=== PATIENT | female | born 1995 | race American Indian/Alaskan Native ===

== ENCOUNTER 2017-10-23 22:33 | Emergency (ER) | payer OTHER ==
[2017-10-24 00:45] LABS: Anion Gap 22 mmol/L; BUN/Creatinine Ratio 22; Blood Urea Nitrogen 11 mg/dL (7-17); Calcium 9.5 mg/dL (8.4-10.2); Carbon Dioxide 21 mmol/L (22-30); Chloride 100.9 mmol/L (98-107); Glucose 77 mg/dL (65-100); Potassium 4.3 mmol/L (3.6-5.0); Sodium 140 mmol/L (137-145)
[2017-10-24 00:53] LABS: Basophils % (Auto) 0.7 % (0.0-1.8); Eosinophils % (Auto) 0.7 % (0.0-4.3); Mean Corpuscular HGB Conc 29 % (30-34); Platelet Count 403 K/mm3 (140-440); Red Blood Count 4.42 M/mm3 (3.65-5.03); White Blood Count 7.9 K/mm3 (4.5-11.0)
[2017-10-24 00:55] LABS: Hematocrit 28.3 % (30.3-42.9); Hemoglobin 8.3 gm/dl (10.1-14.3); Mean Corpuscular Volume 64 fl (79-97)
[2017-10-24 00:56] LABS: Mean Corpuscular Hemoglobin 19 pg (28-32); Red Cell Distribution Width 20.9 % (13.2-15.2)
[2017-10-24 01:03] LABS: Urine Drugs of Abuse Note Disclamer
[2017-10-24 01:41] LABS: Bilirubin,Urine NEG (Negative); Blood,Urine NEG (Negative); Ketones,Urine 80 mg/dL (Negative); Leukocyte Esterase,Urine NEG (Negative); Mucus,Urine 3+ /HPF; Nitrite,Urine NEG (Negative); Protein,Urine <15 mg/dL mg/dL (Negative)
--- NOTE | 2017-10-24 08:17 | Emergency Department Report ---
ED General Adult HPI - General Chief complaint: Psych Stated complaint: CHEST PAIN/AMPHETAMINES/BENEDRYL Time Seen by Provider: 10/24/17 08:02 Source: patient, RN notes reviewed Mode of arrival: Ambulatory Limitations: No Limitations - History of Present Illness Initial comments: This is a 22-year-old female who was previously unknown to this provider. The patient presents to the ER with a primary complaint of suicidality and overdose. Patient reports multiple ingestions yesterday, between 1 PM to 8 PM. As per nurse documentation: First contact with pt. Pt ambulated to room 5 from the with steady gait. Pt states she took 1 Adderall @ 1300, 2 Adderralls @ 1500, 3 Adderalls @ 1700, and 3 Adderalls and 25 mg Benadryl @ 2000 last night. Pt states they were "immediate release". Pt states she wishes she was and the intent was to kill herself. Pt denies HI and previous suicide attempts. The patient denies coingestions. The patient also complains of chest pain. The chest pain is central. It is achy. It has been present since 4:00 in the morning. It radiates to the back. There is no vomiting, there is no diaphoresis, there is no shortness of breath , there is no leg pain. There is no leg swelling. Patient denies DVT and pulmonary embolus risk factors, and she denies taking control tablets. She also complains of crampy diffuse abdominal pain. It is "all over." It does not radiate anywhere. He does not have exacerbating or relieving factors. Patient also has a self-inflicted wound to the left upper extremity, which she indicates she carved herself yesterday, which states "checked my wallet." -: Gradual, hour(s) Location: chest, abdomen Radiation: back Severity scale (0 -10): 0 Quality: aching Consistency: intermittent Improves with: none Worsens with: none Associated Symptoms: chest pain, weakness. denies: confusion, cough, shortness of breath - Related Data Allergies Allergy/AdvReac Type Severity Reaction Status Date / Time Penicillins Allergy Rash Verified 10/23/17 23:44 ED Review of Systems ROS: Stated complaint: CHEST PAIN/AMPHETAMINES/BENEDRYL Other details as noted in HPI Constitutional: denies: fever Eyes: denies: vision change ENT: denies: epistaxis Respiratory: denies: cough Cardiovascular: chest pain Gastrointestinal: abdominal pain Genitourinary: denies: dysuria Musculoskeletal: as per HPI Skin: as per HPI, rash Neurological: as per HPI Psychiatric: depression, suicidal thoughts ED Past Medical Hx - Past Medical History Previous Medical History?: Yes Hx Psychiatric Treatment: Yes Additional medical history: Anemia - Surgical History Past Surgical History?: No Additional Surgical History: Hernia - Social History Smoking Status: Current Every Day Smoker Substance Use Type: Alcohol, Marijuana ED Physical Exam - General Limitations: No Limitations General appearance: alert, anxious - Head Head exam: Present: atraumatic, normocephalic - Eye Eye exam: Present: normal appearance, EOMI, other (visual acuity intact to finger counting, color perception, reading at a close distance). Absent: nystagmus - ENT ENT exam: Present: normal exam, normal orophraynx, mucous membranes moist, normal external ear exam - Neck Neck exam: Present: normal inspection, full ROM. Absent: tenderness, meningismus - Respiratory Respiratory exam: Present: normal lung sounds bilaterally. Absent: respiratory distress, chest wall tenderness - Cardiovascular Cardiovascular Exam: Present: regular rate, normal rhythm, normal heart sounds. Absent: systolic murmur, diastolic murmur, rubs, gallop - GI/Abdominal GI/Abdominal exam: Present: soft, normal bowel sounds. Absent: distended, tenderness, guarding, rebound, rigid, pulsatile mass - Extremities Exam Extremities exam: Present: full ROM, normal capillary refill, other (2+ pulses noted in the bilateral upper extremities and lower extremities. The compartments are soft, and the pelvis is stable. In the left upper extremity, patient has a self-inflicted wound written in the volar aspect of her left forearm which reads: "check my wallet"). Absent: normal inspection, tenderness , pedal edema, joint swelling, calf tenderness - Back Exam Back exam: Present: normal inspection, full ROM. Absent: tenderness, CVA tenderness (R), paraspinal tenderness, vertebral tenderness - Neurological Exam Neurological exam: Present: alert, oriented X3, normal gait, other (Extraocular movements intact. Tongue midline. No facial droop. Facial sensation intact to light touch in the V1, V2, V3 distribution bilaterally. 5 and 5 strength in 4 extremities.. Sensation is intact to light touch in 4 extremities.). Absent : motor sensory deficit - Psychiatric Psychiatric exam: Present: anxious, suicidal ideation. Absent: homicidal ideation - Skin Skin exam: Present: warm, dry, intact, normal color. Absent: rash ED Course Vital Signs 10/23/17 10/24/17 10/24/17 23:45 08:29 11:45 Temperature 98.7 F 98.6 F 98.9 F Pulse Rate 99 H 87 73 Respiratory 18 14 16 Rate Blood Pressure 130/89 125/90 111/78 [Right] O2 Sat by Pulse 100 100 100 Oximetry - Reevaluation(s) Reevaluation #1: 10/24/17 10:19 Differential diagnosis, including but not limited to: Polysubstance overdose, self-inflicted wound to left upper extremity, acute coronary syndrome, pneumonia , costochondritis, GERD, reflux, , medical clearance for psychiatric placement Assessment and plan: 22-year-old female with multiple complaints. In terms of the patient's overdose, she is placed on a 1013. Her last overdose by history was at 8:00 last night. Patient presented almost 4 hours after ingestion, and she is therefore not a charcoal candidate. The [facility] was contacted by the nurse, and they recommended a creatinine kinase, and serum toxicology studies and supportive care. No pulmonary embolus or DVT risk factors, low risk by well's criteria, low risk by CARY score, low risk by heart score. We will check serum toxicology studies, troponin 2, EKG has been unremarkable 2, x-ray of the chest is negative. Abdomen soft and benign, with no rebound, guarding or peritoneal signs, the patient is currently sitting on a stretcher, I don't believe she requires advanced imaging at this time. We will contact psychiatry once all of her objective data points have returned. Reevaluation #2: 10/24/17 14:21 Patient reevaluated multiple times by myself. Patient in no distress. Vital signs remained unremarkable and stable. Patient resting comfortably, and in no distress. Serum toxicology studies are unremarkable. The patient is medically stable for psychiatric consultation, evaluation and placement at this time. there does not appear to be any immediate medical contraindication to psychiatric placement. ED Medical Decision Making - Lab Data Result diagrams: 10/23/17 23:59 10/23/17 23:59 Vital Signs 10/23/17 10/24/17 23:45 08:29 Temperature 98.7 F 98.6 F Pulse Rate 99 H 87 Respiratory 18 14 Rate Blood Pressure 130/89 125/90 [Right] O2 Sat by Pulse 100 100 Oximetry Lab Results 10/23/17 10/23/17 10/23/17 Range/Units 23:59 23:59 23:59 WBC (4.5-11.0) K/mm3 RBC (3.65-5.03) M/mm3 Hgb (10.1-14.3) gm/dl Hct (30.3-42.9) % MCV (79-97) fl MCH (28-32) pg MCHC (30-34) % RDW (13.2-15.2) % Plt Count (140-440) K/mm3 Lymph % (Auto) (13.4-35.0) % Fleming % (Auto) (0.0-7.3) % Eos % (Auto) (0.0-4.3) % Baso % (Auto) (0.0-1.8) % Lymph # (1.2-5.4) K/mm3 Fleming # (0.0-0.8) K/mm3 Eos # (0.0-0.4) K/mm3 Baso # (0.0-0.1) K/mm3 Seg Neutrophils % (40.0-70.0) % Seg Neutrophils # (1.8-7.7) K/mm3 Sodium 140 (137-145) mmol/L Potassium 4.3 (3.6-5.0) mmol/L Chloride 100.9 (98-107) mmol/L Carbon Dioxide 21 L (22-30) mmol/L Anion Gap 22 mmol/L BUN 11 (7-17) mg/dL Creatinine 0.5 L (0.7-1.2) mg/dL Estimated GFR > 60 ml/min BUN/Creatinine Ratio 22 % Glucose 77 (65-100) mg/dL Calcium 9.5 (8.4-10.2) mg/dL Total Creatine Kinase (30-135) units/L Troponin T (0.00-0.029) ng/mL HCG, Qual Negative (Negative) Urine Color (Yellow) Urine Turbidity (Clear) Urine pH (5.0-7.0) Ur Specific [place] (1.003-1.030) Urine Protein (Negative) mg/dL Urine Glucose (UA) (Negative) mg/dL Urine Ketones (Negative) mg/dL Urine Blood (Negative) Urine Nitrite (Negative) Urine Bilirubin (Negative) Urine Urobilinogen (<2.0) mg/dL Ur Leukocyte Esterase (Negative) Urine WBC (Auto) (0.0-6.0) /HPF Urine RBC (Auto) (0.0-6.0) /HPF U Epithel Cells (Auto) (0-13.0) /HPF Hyaline Casts /LPF Urine Mucus /HPF Urine Opiates Screen Urine Methadone Screen Ur Barbiturates Screen Ur Phencyclidine Scrn Ur Amphetamines Screen U Benzodiazepines Scrn Urine Cocaine Screen U Marijuana (THC) Screen Drugs of Abuse Note Plasma/Serum Alcohol < 0.01 (0-0.07) gm% 10/23/17 10/23/17 10/23/17 Range/Units 23:59 23:59 23:59 WBC 7.9 (4.5-11.0) K/mm3 RBC 4.42 (3.65-5.03) M/mm3 Hgb 8.3 L (10.1-14.3) gm/dl Hct 28.3 L (30.3-42.9) % MCV 64 L (79-97) fl MCH 19 L (28-32) pg MCHC 29 L (30-34) % RDW 20.9 H (13.2-15.2) % Plt Count 403 (140-440) K/mm3 Lymph % (Auto) 16.8 (13.4-35.0) % Fleming % (Auto) 5.8 (0.0-7.3) % Eos % (Auto) 0.7 (0.0-4.3) % Baso % (Auto) 0.7 (0.0-1.8) % Lymph # 1.3 (1.2-5.4) K/mm3 Fleming # 0.5 (0.0-0.8) K/mm3 Eos # 0.1 (0.0-0.4) K/mm3 Baso # 0.1 (0.0-0.1) K/mm3 Seg Neutrophils % 76.0 H (40.0-70.0) % Seg Neutrophils # 6.0 (1.8-7.7) K/mm3 Sodium (137-145) mmol/L Potassium (3.6-5.0) mmol/L Chloride (98-107) mmol/L Carbon Dioxide (22-30) mmol/L Anion Gap mmol/L BUN (7-17) mg/dL Creatinine (0.7-1.2) mg/dL Estimated GFR ml/min BUN/Creatinine Ratio % Glucose (65-100) mg/dL Calcium (8.4-10.2) mg/dL Total Creatine Kinase 49 (30-135) units/L Troponin T < 0.010 (0.00-0.029) ng/mL HCG, Qual (Negative) Urine Color (Yellow) Urine Turbidity (Clear) Urine pH (5.0-7.0) Ur Specific [place] (1.003-1.030) Urine Protein (Negative) mg/dL Urine Glucose (UA) (Negative) mg/dL Urine Ketones (Negative) mg/dL Urine Blood (Negative) Urine Nitrite (Negative) Urine Bilirubin (Negative) Urine Urobilinogen (<2.0) mg/dL Ur Leukocyte Esterase (Negative) Urine WBC (Auto) (0.0-6.0) /HPF Urine RBC (Auto) (0.0-6.0) /HPF U Epithel Cells (Auto) (0-13.0) /HPF Hyaline Casts /LPF Urine Mucus /HPF Urine Opiates Screen Urine Methadone Screen Ur Barbiturates Screen Ur Phencyclidine Scrn Ur Amphetamines Screen U Benzodiazepines Scrn Urine Cocaine Screen U Marijuana (THC) Screen Drugs of Abuse Note Plasma/Serum Alcohol (0-0.07) gm% 10/24/17 10/24/17 Range/Units 00:47 00:47 WBC (4.5-11.0) K/mm3 RBC (3.65-5.03) M/mm3 Hgb (10.1-14.3) gm/dl Hct (30.3-42.9) % MCV (79-97) fl MCH (28-32) pg MCHC (30-34) % RDW (13.2-15.2) % Plt Count (140-440) K/mm3 Lymph % (Auto) (13.4-35.0) % Fleming % (Auto) (0.0-7.3) % Eos % (Auto) (0.0-4.3) % Baso % (Auto) (0.0-1.8) % Lymph # (1.2-5.4) K/mm3 Fleming # (0.0-0.8) K/mm3 Eos # (0.0-0.4) K/mm3 Baso # (0.0-0.1) K/mm3 Seg Neutrophils % (40.0-70.0) % Seg Neutrophils # (1.8-7.7) K/mm3 Sodium (137-145) mmol/L Potassium (3.6-5.0) mmol/L Chloride (98-107) mmol/L Carbon Dioxide (22-30) mmol/L Anion Gap mmol/L BUN (7-17) mg/dL Creatinine (0.7-1.2) mg/dL Estimated GFR ml/min BUN/Creatinine Ratio % Glucose (65-100) mg/dL Calcium (8.4-10.2) mg/dL Total Creatine Kinase (30-135) units/L Troponin T (0.00-0.029) ng/mL HCG, Qual (Negative) Urine Color Yellow (Yellow) Urine Turbidity Clear (Clear) Urine pH 6.0 (5.0-7.0) Ur Specific [place] 1.021 (1.003-1.030) Urine Protein <15 mg/dl (Negative) mg/dL Urine Glucose (UA) Neg (Negative) mg/dL Urine Ketones 80 (Negative) mg/dL Urine Blood Neg (Negative) Urine Nitrite Neg (Negative) Urine Bilirubin Neg (Negative) Urine Urobilinogen 2.0 (<2.0) mg/dL Ur Leukocyte Esterase Neg (Negative) Urine WBC (Auto) 2.0 (0.0-6.0) /HPF Urine RBC (Auto) 2.0 (0.0-6.0) /HPF U Epithel Cells (Auto) 4.0 (0-13.0) /HPF Hyaline Casts 1 /LPF Urine Mucus 3+ /HPF Urine Opiates Screen Presumptive negative Urine Methadone Screen Presumptive negative Ur Barbiturates Screen Presumptive negative Ur Phencyclidine Scrn Presumptive negative Ur Amphetamines Screen Presumptive positive U Benzodiazepines Scrn Presumptive negative Urine Cocaine Screen Presumptive negative U Marijuana (THC) Screen Presumptive positive Drugs of Abuse Note Disclamer Plasma/Serum Alcohol (0-0.07) gm% - EKG Data -: EKG Interpreted by Me - EKG Data 10/24/17 10:21 Sinus, 79 beats minute, normal axis, QTC prolonged, incomplete right bundle branch block, abnormal EKG, not morphologically consistent with ST elevation myocardial infarction, unremarkable EKG 2, initial EKG dentistry as tachycardia. - Radiology Data Radiology results: image reviewed interpreted by me: X-ray of the chest is negative for acute disease Critical care attestation.: If time is entered above; I have spent that time in minutes in the direct care of this critically ill patient, excluding procedure time. ED Disposition Clinical Impression: Medical clearance for psychiatric admission Disposition: [id number]/[id number] PSY HOSP/PSY UNIT Is pt being admited?: No Does the pt Need Aspirin: No Condition: Good Referrals: PRIMARY CARE, [Primary Care Provider] - 3-5 Days
[2017-10-24] MEDS ORDERED: HALDOL IM PRN (08:24)
[2017-10-24] MEDS ORDERED: ZOFRAN ODT PO PRN (08:24)
[2017-10-24] MEDS ORDERED: ATIVAN IM PRN (08:24)
[2017-10-24] MEDS ORDERED: TYLENOL PO PRN (08:24)
[2017-10-24] MEDS ORDERED: BOOSTRIX IM ONE (10:17)
--- NOTE | 2017-10-24 10:27 | XRay Report ---
AP CHEST : 10/24/17 CLINICAL: Chest pain. COMPARISON:None FINDINGS: Normal heart and pulmonary vessels. The lungs are normally expanded and clear. The bones and soft tissues are unremarkable. IMPRESSION: Normal chest.
--- NOTE | 2017-10-25 10:41 | Consultation ---
History of Present Illness - Reason for Consult Consult date: 10/25/17 Reason for consult: Mental Health Evaluation Requesting physician: ANA STOCK - Chief Complaint Chief complaint: "I wanted to " - History of Present Psychiatric Illness The patient presents to the ER with a primary complaint of suicidality and overdose. Today patient is calm and cooperative, but withdrawn during the assessment. She stated that she been feeling "some sort of way" for the past 2 years. She stated that she has lost a lot of things reference bad relationships. She made a decision because of a relationship to move from one city in [place] to another that caused her to change jobs (she took a pay cut). She stated by taking a pay cut she lost her car and could not afford to pay rent on her own. Currently, the patient is in a relationship that has not always been "good." She stated yesterday they got into an argument because she thinks her partner is "cheating" on her. She stated that life came falling down on her and she wanted to , so she decided to take multiple adderall pills (9) to kill herself. She stated this is the first time she has tried to attempt to kill herself. She stated that her sleep has been erratic lately thinking about her future. She stated that she smoke "weed" often to "mellow out." She stated that she need help and want to talk with a professional, because her life is "not right." She denies SI/HI's and AVH's. She rate her depression 7/10, with 10 being the worse. She denies excessive alcohol consumption (etoh). Medications and Allergies Allergies Allergy/AdvReac Type Severity Reaction Status Date / Time Penicillins Allergy Rash Verified 10/25/17 11:02 Home Medications Medication Instructions Recorded Confirmed Last Taken Type No Known Home Medications [No 10/24/17 10/24/17 Unknown History Reported Home Medications] Active Meds: Active Medications Acetaminophen (Tylenol) 650 mg PO Q6HR PRN PRN Reason: Pain Haloperidol Lactate (Haldol) 5 mg IM Q6HR PRN PRN Reason: Agitation Lorazepam (Ativan) 2 mg IM Q4HR PRN PRN Reason: Agitation Ondansetron HCl (Zofran Odt) 4 mg PO Q6HR PRN PRN Reason: Nausea Past psychiatric history - Past Medical History Past Medical History: anemia Past Surgical History: No surgical history - past Psychiatric treatment and history psychiatric treatment history: Denies a psy hx and a fam psy hx. - Social History Social history: other (Resides with her partner) Mental Status Exam - Vital signs Last Vital Signs Temp 98.6 F 10/24/17 19:05 Pulse 90 10/24/17 19:05 Resp 16 10/24/17 19:05 BP 118/77 10/24/17 19:05 Pulse Ox 99 10/24/17 19:05 - Exam Narrative exam: MSE: Appearance: calm, cooperative Behavior: regular eye contact Speech: regular rate and tone Mood: withdrawn Affect: congruent to mood Thought Process: linear Thought Content: denies SI/HI's and AVH's Motor Activity: ambulatory Cognition: A/O x3 Insight: variable Judgment: variable Results Result Diagrams: 10/23/17 23:59 10/23/17 23:59 All other labs normal. Assessment and Plan Assessment and plan: Impression: MDD Severe Type. Substance Use DO (marijuana). Today patient is calm and cooperative, but withdrawn during the assessment. DDx: R/O Bipolar DO, R/O Substance Induced Mood DO Recommendation/Plan: Continue 1013 with placement to inpatient psy services. Start Remeron 15 mg PO HS for depression/sleep consolidation. Discussed possible suicidality/medication induced [place] with patient reference Remeron.
[2017-10-25] MEDS: REMERON PO SCH (22:06)
--- NOTE | 2017-10-26 16:26 | Progress Note ---
Subjective - Reason for Consult Consult date: 10/26/17 Reason for consult: psychiatric follow up - Chief Complaint Chief complaint: "Can I leave?" The patient presents to the ER with a primary complaint of suicidality and overdose on adderall. Today patient is calm and cooperative, but guarded during the assessment. She wants to leave. She says she would have to arrange for an extended stay place. She denies SI/HI's and AVH's. Mental Status Exam - Vital signs Last Vital Signs Temp 98.9 F 10/26/17 07:41 Pulse 70 10/26/17 07:41 Resp 16 10/26/17 07:41 BP 102/63 10/26/17 07:41 Pulse Ox 100 10/26/17 07:41 - Exam Narrative exam: MSE: Appearance: calm, cooperative Behavior: regular eye contact Speech: regular rate and tone Mood: irritable Affect: congruent to mood Thought Process: linear Thought Content: denies SI/HI's and AVH's Motor Activity: ambulatory Cognition: A/O x3 Insight: variable Judgment: variable Assessment and Plan Impression: MDD Severe Type. Substance Use DO (marijuana). Today patient is calm and cooperative, but withdrawn during the assessment. She is perseverative about leaving. DDx: R/O Bipolar DO, R/O Substance Induced Mood DO Recommendation/Plan: Continue 1013 with placement to inpatient psy services. Continue Remeron 15 mg PO HS for depression/sleep consolidation.
[2017-10-26] MEDS: REMERON PO SCH (22:37)
--- NOTE | 2017-10-27 17:29 | Progress Note ---
Subjective - Reason for Consult Consult date: 10/27/17 Reason for consult: follow up - Chief Complaint Chief complaint: "I'm fine now." The patient presents to the ER with a primary complaint of suicidality and overdose on adderall. Today patient is calm and cooperative, but guarded during the assessment. She wants to leave. She says she has 2 jobs and does not want to lose them. She says she would have to arrange for an extended stay place. She denies SI/HI's and AVH's. Mental Status Exam - Vital signs Last Vital Signs Temp 98.2 F 10/27/17 08:20 Pulse 62 10/27/17 08:20 Resp 16 10/27/17 08:20 BP 108/68 10/27/17 08:20 Pulse Ox 99 10/27/17 08:20 - Exam Narrative exam: MSE: Appearance: calm, cooperative Behavior: regular eye contact Speech: regular rate and tone Mood: irritable Affect: congruent to mood Thought Process: linear Thought Content: denies SI/HI's and AVH's Motor Activity: ambulatory Cognition: A/O x3 Insight: variable Judgment: variable Assessment and Plan Impression: MDD Severe Type. Substance Use DO (marijuana). Today patient is calm and cooperative, but withdrawn during the assessment. She maintains denial of suicidal ideation. DDx: R/O Bipolar DO, R/O Substance Induced Mood DO Recommendation/Plan: Continue Remeron 15 mg PO HS for depression/sleep consolidation. Continue to work on finding inpatient psychiatric placement.
[2017-10-27] MEDS ORDERED: REMERON PO SCH (17:35)
--- NOTE | 2017-10-28 11:09 | Progress Note ---
Subjective - Reason for Consult Consult date: 10/28/17 Reason for consult: psychiatry Follow - Chief Complaint Chief complaint: "How are you" The patient presents to the ER with a primary complaint of suicidality and overdose. Today patient is calm and cooperative during the assessment. She stated that she shouldn't taking the Adderall pills. She stated its better way' s to handle stressful situation. She stated being drowsy this morning. She denies SI/HI's and AVH's. Mental Status Exam - Vital signs Last Vital Signs Temp 98.6 F 10/28/17 09:16 Pulse 73 10/28/17 09:16 Resp 20 10/28/17 09:16 BP 119/69 10/28/17 09:16 Pulse Ox 100 10/28/17 09:16 - Exam Narrative exam: MSE: Appearance: calm, cooperative Behavior: regular eye contact Speech: regular rate and tone Mood: "fine" Affect: congruent to mood Thought Process: linear Thought Content: denies SI/HI's and AVH's Motor Activity: ambulatory Cognition: A/O x3 Insight: fair Judgment: fair Assessment and Plan Impression: MDD Severe Type. Substance Use DO (marijuana). Today patient is calm and cooperative during the assessment. DDx: R/O Bipolar DO, R/O Substance Induced Mood DO Recommendation/Plan: Evaluate 1013 in 24 hours to determine proper dispo. D/C Remeron and Start Zoloft 50 mg PO daily for depression. Discussed possible suicidality/medication induced parish with patient reference Zoloft.
[2017-10-28] MEDS: ZOLOFT PO SCH (16:43)
[2017-10-29] MEDS: ZOLOFT PO SCH (11:00)
--- NOTE | 2017-10-29 14:44 | Progress Note ---
Subjective - Reason for Consult Consult date: 10/29/17 Reason for consult: Psychiatry Follow-up - Chief Complaint Chief complaint: "Hello" The patient presents to the ER with a primary complaint of suicidality and overdose. Today patient is calm and cooperative during the assessment. Per collateral information from Pamelaamriklizeth Stafford at [phone] her partner, she stated that this was the first time the patient ever tried to harm herself in their relationship. She stated that the patient would benefit from outpatient psy services once discharged. She stated that the patient can return home once discharged. The patient denies SI/HI's and AVH's. She denies any side effects of her medication. Mental Status Exam - Vital signs Last Vital Signs Temp 99.0 F 10/29/17 09:00 Pulse 74 10/29/17 09:00 Resp 18 10/29/17 09:00 BP 120/80 10/29/17 09:00 Pulse Ox 99 10/29/17 09:00 - Exam Narrative exam: MSE: Appearance: calm, cooperative Behavior: regular eye contact Speech: regular rate and tone Mood: "okay" Affect: congruent to mood Thought Process: linear Thought Content: denies SI/HI's and AVH's Motor Activity: ambulatory Cognition: A/O x3 Insight: appropriate Judgment: appropriate Assessment and Plan Impression: MDD Severe Type. Substance Use DO (marijuana). Today patient is calm and cooperative during the assessment. Patient is no threat to self. DDx: R/O Bipolar DO, R/O Substance Induced Mood DO I. This screening and assessment is based on information collected from the following sources: II. SUICIDE RISK SCREENING (within last 30 days): A.) Suicidal thoughts/behaviors: Yes SUICIDE RISK ASSESSMENT III. FACTORS THAT INCREASE RISK: A.) Demographic and Substance Use Factors: Marijuana Use B.) Current/Recent Factors (within past 3 months): Psychosocial/Environmental Factors: Family not in the local area Physical Illness: None Cognitive/Psychological Factors: None C.) Historical Factors: None D.) Diagnostic/Symptom/Treatment Factors: None E.) Acute Risk Factor Severity (DESC; MILD/MOD/SEVERE): Mild Other factors for this individual that increase risk: IV. FACTORS THAT DECREASE RISK: Resilience/Protective Factors: Patient is willing to see a therapist/ psychiatrist in the outpatient setting Other factors for this individual that decrease risk: Patient denies a desire to harm self V. Clinician's Formulation of Risk and Determination of level of Care: This is a 22-year-old AA female who was experiencing a "mental break down" and decided to take multiple Adderall pills (overdose) to relieve her crisis. The patient is aware that her actions were dangerous. She acknowledged that she should have contacted a crisis hotline for help. Since being hospitalized, the patient has consistently denied the desire to harm herself. Additionally, she has become insightful about how to better address her concerns. Patient is not impaired by substance. She is able to take care of her ADLs and is not at imminent risk of harm to self or others. Consequently, it is the opinion of the treatment team that the patient is at low risk of suicide and does not meet criteria to continue an involuntary psychiatric hold. Estimation of Imminent Risk: Low due to the above explanation. Determination of Level of Care based on Suicide Risk: Outpatient follow-up. Narrative description of clinical reasoning. (This must be completed on all patients): . Plan and Interventions based on Suicide Risk: This patient will likely be stepped down to an outpatient mental health center in the community upon discharge and follow-up within 7 days of her discharge from the hospital. VII. Discharge/After Hours Support Plan: Patient can return back to the ER, call 911 or crisis line if symptoms of depression, anxiety, suicidality return. Recommendation/Plan: Rescind 1013. Continue Zoloft 50 mg PO daily for depression. Discussed possible suicidality/medication induced parish with patient reference Zoloft. Discussed generalized coping skills with patient. Patient given outpatient/psy services for [facility].
[2017-10-29 18:14] VITALS: BP 120/64
== END 2017-10-29 18:05 ==
LOC: ED 22:33 → EEVIPCON 22:33 → ED 10-29 18:05
DX: T43.623A Poisoning by amphetamines, assault, initial encounter (principal); R07.9 Chest pain, unspecified; R10.84 Generalized abdominal pain; Y92.89 Other specified places as the place of occurrence of the external cause; F17.200 Nicotine dependence, unspecified, uncomplicated; F12.10 Cannabis abuse, uncomplicated
CPT/HCPCS: 36415; 71010; 80048; 80307; 81001; 82550; 84484; 84703; 85025; 90471; 90715; 93005; 93010; 99285; G0480; 80320